=== PATIENT | female | born 1965 | race American Indian/Alaskan Native ===

== ENCOUNTER 2018-07-11 11:36 | Emergency (ER) | payer OTHER ==
[2018-07-11 11:42] VITALS: BMI 30.5
[2018-07-11] MEDS ORDERED: Lidocaine 5% Patch TD STA (12:20)
--- NOTE | 2018-07-11 13:25 | ED PDOC ---
HPI: General Adult Time Seen by Provider: 07/11/18 11:50 Chief Complaint (Nursing): Upper Extremity Problem/Injury History Per: Patient Additional Complaint(s): Pt. states on while at work she pulled a heavy bin towards her with her L arm and has since worsened her neck pain. States on 02/2018 she sustained an injury to the neck which is scheduled to a discketomy on 07/22/[address] Cameron. States she normally takes Motrin which provides good analgesia but since the new injury pain has remained constant. Pain radiates from the L side of the neck to the L shoulder. Denies chest pain, SOB, fever, headache, blunt trauma, weakness. Past Medical History Reviewed: Historical Data, Nursing Documentation, Vital Signs Vital Signs: Last Vital Signs Temp 99 F 07/11/18 11:42 Pulse 65 07/11/18 11:42 Resp 20 07/11/18 11:42 BP 137/87 07/11/18 11:42 Pulse Ox 97 07/11/18 13:27 - Medical History PMH: HTN - Surgical History Surgical History: No Surg Hx - Family History Family History: States: No Known Family Hx - Home Medications Home Medications: Ambulatory Orders Medication Instructions Recorded Meloxicam [Mobic] 1 - 2 tab PO DAILY PRN #15 tab 07/11/18 Methocarbamol [Robaxin] 500 mg PO TID PRN #15 tab 07/11/18 - Allergies Allergies/Adverse Reactions: Allergies Allergy/AdvReac Type Severity Reaction Status Date / Time No Known Allergies Allergy Verified 07/11/18 11:52 Review of Systems ROS Statement: Except As Marked, All Systems Reviewed And Found Negative Musculoskeletal: Positive for: Neck Pain Physical Exam - Physical Exam Appears: Positive for: Well, Non-toxic, In Acute Distress (minimal painful distress) Skin: Positive for: Normal Color, Warm. Negative for: Rash Eye Exam: Positive for: Normal appearance ENT: Positive for: Normal ENT Inspection. Negative for: Pharyngeal Erythema, Tonsillar Exudate, Tonsillar Swelling Neck: Positive for: Decreased ROM (secondary to pain), Pain On Movement Of Neck Cardiovascular/Chest: Positive for: Regular Rate, Rhythm Respiratory: Positive for: Normal Breath Sounds. Negative for: Respiratory Distress Pulses-Radial (L): 2+ Pulses-Radial (R): 2+ Back: Positive for: Normal Inspection, Other (L paracervical muscle spasm ). Negative for: L CVA Tenderness, R CVA Tenderness, Vertebral Tenderness ( including c-spine) Extremity: Positive for: Normal ROM, Other (L shoulder: no tenderness, swelling , deformity) Neurologic/Psych: Positive for: Alert, Oriented (x3). Negative for: Aphasia, Facial Droop - ECG O2 Sat by Pulse Oximetry: 97 - Radiology X-Ray: Interpreted by Me (C-spine x-ray) X-Ray Interpretation: No Acute Disease - Progress ED Course And Treament: Toradol 15mg IM, valium 10mg PO, lidoderm patch ordered. C-spine x-ray ordered. Re-evaluation Time: 13:44 (Advised to f/u with Dr. Cameron for further evaluation. ) Condition: Re-examined, Improving,but remains with symptoms Disposition - Clinical Impression Clinical Impression: Cervical radiculopathy - Patient ED Disposition Is Patient to be Admitted: No - Disposition Referrals: [facility] [Outside] Disposition: Routine/Home Disposition Time: 13:44 Condition: IMPROVED Additional Instructions: FOLLOW UP WITH DR. CAMERON FOR FURTHER EVALUATION KARLOS NEAL, thank you for letting us take care of you today. Your provider was Charles Lennon III, DO and you were treated for NECK PAIN. The emergency medical care you received today was directed at your acute symptoms. If you were prescribed any medication, please fill it and take as directed. It may take several days for your symptoms to resolve. Return to the Emergency Department if your symptoms worsen, do not improve, or if you have any other problems. Please contact your doctor or call one of the physicians/clinics you have been referred to that are listed on the Patient Visit Information form that is included in your discharge packet. Bring any paperwork you were given at discharge with you along with any medications you are taking to your follow up visit. Our treatment cannot replace ongoing medical care by a primary care provider outside of the emergency department. [facility] your care today. If you had an X-Ray or CT scan: A Radiologist will review the ED reading if any change in treatment is needed we will contact you. If you had a blood, urine, or wound culture: It will take several days for the results, if any change in treatment is needed we will contact you. If you had an STI test: It will take 48 hours for the results. Please call after 1 week if you have not heard back. Prescriptions: Meloxicam [Mobic] 1 - 2 tab PO DAILY PRN #15 tab PRN Reason: PAIN Methocarbamol [Robaxin] 500 mg PO TID PRN #15 tab PRN Reason: Muscle Spasm Instructions: Radiculopathy (DC) Forms: [employer] (Turkish) Print Language: GHANAIAN
--- NOTE | 2018-07-11 14:17 | RAD ---
Date of service: 07/11/2018 PROCEDURE: Cervical Spine Radiographs. HISTORY: Pain. COMPARISON: None. FINDINGS: BONES: Straightening of the spine, loss of normal lordosis. No vertebral body abnormalities detected. DISC SPACES: Mild degenerative changes C4-5 and C5-6. SOFT TISSUES: Normal. No prevertebral soft tissue swelling. OTHER FINDINGS: None. IMPRESSION: Mild cervical spondylotic changes. Otherwise unremarkable study.
[2018-07-11 15:40] VITALS: BP 142/89; PULSE 67; RESP 18; TEMP 98.2; O2SAT 99
== END 2018-07-11 15:41 | disposition home or self-care (01) ==
LOC: H.ER 11:36
DX: M54.12 Radiculopathy, cervical region (principal); I10 Essential (primary) hypertension
CPT/HCPCS: 72040; 81025; 96372; 99284; J1885